=== PATIENT | male | born 1960 | race Caucasian/White ===

== ENCOUNTER 2018-02-03 12:10 | Emergency (ER) | payer BC ==
[~2018-02-03] VITALS: Ht 185.4 cm; Wt 123.9 kg
[2018-02-03 12:49] LABS: HEMATOCRIT 46.8 % (38.0-50.0); HEMOGLOBIN 16.3 G/DL (12.5-16.6); MCH 30.8 PG (29.0-34.0); MCHC 34.8 G/DL (30.0-36.0); MCV 88.5 FL (86-99); PLATELET COUNT 238 K/uL (156-360); RBC DIS.WIDTH-CV 12.7 % (11.8-14.6); RBC DIS.WIDTH-SD 41.1 % (39-53); RED BLOOD COUNT 5.29 M/uL (4.00-5.50); WHITE BLOOD COUNT 7.2 K/uL (4.1-10.2)
[2018-02-03 13:00] LABS: ALBUMIN 4.5 g/dL (3.2-4.8); CHLORIDE 105 mEq/L (99-109); SODIUM 138 mEq/L (136-147)
[2018-02-03 13:02] LABS: GLUCOSE 109 mg/dL (70-99); TOTAL PROTEIN 7.8 g/dL (6.4-8.3)
[2018-02-03 13:04] LABS: TOTAL BILIRUBIN 0.8 mg/dL (0.0-1.0)
[2018-02-03 13:06] LABS: ALKALINE PHOSPHATASE 75 IU/L (3-129); CREATININE 1.2 mg/dL (0.6-1.3); GFR ESTIMATE (CALCULATED) > 59 mL/min/ (58.99-99999)
[2018-02-03 13:07] LABS: AST (GOT) 23 IU/L (2-34); UREA NITROGEN (BUN) 21 mg/dL (9-23)
[2018-02-03 13:09] LABS: ALT (GPT) 26 IU/L (3-49); LIPASE 25 U/L (1.0-51.0)
[2018-02-03 13:23] LABS: APPEARANCE SL.HAZY ((CLEAR)); BILIRUBIN NEGATIVE; BLOOD NEGATIVE; COLOR YELLOW ((YELLOW)); GLUCOSE (STRIP) NEGATIVE; KETONES NEGATIVE; LEUKOCYTES NEGATIVE; NITRITE NEGATIVE; PROTEIN (STRIP) NEGATIVE; SPECIFIC GRAVITY 1.028 (1.000-1.030); UROBILINOGEN 0.2 MG/DL (0.2-1.0)
[2018-02-03 13:36] LABS: BACTERIA NONE SEEN /HPF; EPITHELIAL CELLS NONE SEEN /HPF; MUCUS 3+ /LPF; RED BLOOD CELLS 0-5 /HPF (0-5); UCUL ADDED? NO; WHITE BLOOD CELLS 0-5 /HPF (0-5)
[2018-02-03] MEDS ORDERED: OMEPRAZOLE40 M1 PO (15:18)
[2018-02-03] MEDS ORDERED: CARAFATE1 GM PO (15:18)
[2018-02-03 15:21] VITALS: BP 139/72
== END 2018-02-03 15:22 | disposition home or self-care (01) ==
LOC: EME 12:10
DX: R10.84 Generalized abdominal pain (principal); K76.0 Fatty (change of) liver, not elsewhere classified; K44.9 Diaphragmatic hernia without obstruction or gangrene; N40.0 Benign prostatic hyperplasia without lower urinary tract symptoms; R93.5 Abnormal findings on diagnostic imaging of other abdominal regions, including retroperitoneum
CPT/HCPCS: 74176; 80053; 81003; 83690; 85027; 99281; 99284